=== PATIENT | male | born 1985 | race Caucasian/White ===

== ENCOUNTER 2020-01-27 00:15 | Emergency (ER) | payer OTHER ==
[~2020-01-27] VITALS: Ht 170.2 cm; Wt 72.6 kg
[2020-01-27 00:24] VITALS: BP 158/80
--- NOTE | 2020-01-27 00:27 | NUR ---
PT TAKEN TO BED 11 VIA [facility]. [place] [employer] AT BEDSIDE.
--- NOTE | 2020-01-27 00:40 | NUR ---
PT IS A PRE BOOK [place] [employer] FOR [facility]. PT REFUSED ALL MEDICAL TREATMENT, SIM VELAZQUEZ AWARE, CLEARED PT TO BE BOOKED
== END 2020-01-27 00:34 ==
LOC: MED 00:15
DX: S01.01XA Laceration without foreign body of scalp, initial encounter (principal); Z02.89 Encounter for other administrative examinations; X58.XXXA Exposure to other specified factors, initial encounter; Y93.89 Activity, other specified; Y92.89 Other specified places as the place of occurrence of the external cause; Y99.8 Other external cause status
CPT/HCPCS: 99283